=== PATIENT | female | born 1940 | race African-American/Black ===

== ENCOUNTER 2021-02-08 17:23 | Inpatient (IN) | payer MEDICARE, BC ==
[2021-02-08 18:36] LABS: #Monocytes 0.5 10x3/uL (0.0-1.1); #Neutrophils 17.6 10x3/uL (1.5-8.4); %Basophils 0.2 % (0.0-2.0); %Eosinophils 0.1 % (0.0-6.0); %Lymphocytes 7.5 % (18.0-47.0); %Monocytes 2.3 % (0.0-10.0); %Neutrophils 89.1 % (40.0-75.0); Hemoglobin 13.3 g/dL (12.0-15.5); Mean Corpuscular HGB CONC 31.4 g/dL (32.0-36.0); Mean Corpuscular Hemoglobin 28.7 pg (27.0-33.0); Mean Corpuscular Volume 91.6 fl (81.6-98.3); Mean Platelet Volume 9.6 fl (7.4-10.4); Platelet Count 367 10x3/uL (150-450); RBC Distribution Width 17.4 % (11.5-14.5); Red Blood Cell (RBC) Count 4.63 10x6/uL (3.90-5.03); White Blood Cell (WBC) Count 19.7 10x3/uL (3.5-10.5)
[2021-02-08 18:55] LABS: ALT (SGPT) 32 U/L (8-55); AST (SGOT) 33 U/L (5-34); Alkaline Phosphatase 129 U/L (40-110); Anion Gap 23 mmol/L (10-20); BUN (Urea Nitrogen) 51 mg/dL (9.8-20.1); Bilirubin, Total 0.7 mg/dL (0.2-1.2); CK (CPK) 129 U/L (29-168); Calc. Creatinine Clearance 0 mL/min (70-130); Calcium 9.5 mg/dL (7.8-10.44); Carbon Dioxide 13 mmol/L (23-31); Chloride 121 mmol/L (98-107); Globulin 4.1 g/dL (2.4-3.5); Glucose 320 mg/dL (83-110); Magnesium 2.3 mg/dL (1.6-2.6); Potassium 4.6 mmol/L (3.5-5.1); Protein, Total 8.1 g/dL (5.8-8.1); Sodium 152 mmol/L (136-145)
[2021-02-08 19:08] LABS: Bilirubin Neg (Negative); Blood, Urine 150 (Negative); Glucose, Urine (Dipstick) Normal (Negative); Ketone, Urine Negative (Negative); Leukocyte 500 (Negative); Nitrite Negative (Negative); Protein, Urine (Dipstick) 100 mg/dl (Neg-Trace); Urobilinogen Normal mg/dL (Less than 2)
[2021-02-08 19:15] LABS: Clarity Cloudy (Clear)
[2021-02-08 19:23] LABS: Renal Epithelial 0-3 HPF (None Seen); Squamous Epithelial 0-3 HPF (0-3); WBC/HPF 21-50 HPF (0-3)
[2021-02-08 19:24] LABS: Bacteria/HPF 3+ HPF (None Seen); Mucous/LPF 1+ LPF (<2+)
[2021-02-08] MEDS ORDERED: Cefepime 2 GM VIAL ONE (19:33)
[2021-02-09] MEDS ORDERED: Sodium Chloride 0.45% 1,000 ML IV SCH (00:45)
[2021-02-09 00:49] LABS: Lactic Acid 3.2 mmol/L (0.5-2.2)
[2021-02-09] MEDS ORDERED: Vancomycin HCl 1 GM in Sodium Chloride 0.9% 250 ML 250 ML IVPB SCH (01:00)
[2021-02-09] MEDS: Metoprolol Tartrate 5 MG/5 ML VIAL IVP SCH ×2 (01:38→13:32)
[2021-02-09] MEDS ORDERED: HumaLOG 300 UNITS/3 ML VIAL SC SCH (01:45)
[2021-02-09] MEDS ORDERED: Lactated Ringer's 1,000 ML IV SCH (02:15)
[2021-02-09 04:05] LABS: #Neutrophils 14.5 10x3/uL (1.5-8.4); %Basophils 0.2 % (0.0-2.0); %Eosinophils 0.1 % (0.0-6.0); %Lymphocytes 12.6 % (18.0-47.0); %Monocytes 5.8 % (0.0-10.0); %Neutrophils 80.7 % (40.0-75.0); Hemoglobin 11.8 g/dL (12.0-15.5); Mean Corpuscular HGB CONC 31.4 g/dL (32.0-36.0); Mean Corpuscular Hemoglobin 28.6 pg (27.0-33.0); Mean Corpuscular Volume 91.3 fl (81.6-98.3); Mean Platelet Volume 9.9 fl (7.4-10.4); Platelet Count 339 10x3/uL (150-450); Red Blood Cell (RBC) Count 4.12 10x6/uL (3.90-5.03); White Blood Cell (WBC) Count 17.9 10x3/uL (3.5-10.5)
[2021-02-09 04:09] LABS: Lactic Acid 3.3 mmol/L (0.5-2.2)
[2021-02-09 04:13] LABS: Anion Gap 16 mmol/L (10-20); BUN (Urea Nitrogen) 50 mg/dL (9.8-20.1); Calc. Creatinine Clearance 27 mL/min (70-130); Calcium 8.9 mg/dL (7.8-10.44); Carbon Dioxide 18 mmol/L (23-31); Chloride 122 mmol/L (98-107); Glucose 227 mg/dL (83-110); Magnesium 2.1 mg/dL (1.6-2.6); Potassium 3.2 mmol/L (3.5-5.1); Sodium 153 mmol/L (136-145)
[2021-02-09] MEDS ORDERED: Dextrose 5% in Water 1,000 ML IV PRN (05:26)
[2021-02-09] MEDS ORDERED: Dextrose 50% Abboject 50 ML SYRINGE SLOW IVP PRN (05:26)
[2021-02-09] MEDS ORDERED: Pharmacy to Dose VANC & ABX IVPB PRN (08:29)
[2021-02-09] MEDS ORDERED: Vancomycin HCl 750 MG in Sodium Chloride 0.9% 250 ML 250 ML IVPB PRN (08:34)
[2021-02-09] MEDS: 1/2 NS w/KCL 20 mEq 1,000 ML IV SCH ×2 (09:18→18:45)
[2021-02-09] MEDS: Aspirin 300 MG Suppository PR SCH (09:18)
[2021-02-09] MEDS: Enoxaparin Sodium 30 MG/0.3 ML SYRINGE SC SCH (09:18)
[2021-02-09] MEDS: Lantus 1000 UNITS/10 ML VIAL SC SCH (09:19)
[2021-02-09] MEDS: HumaLOG 300 UNITS/3 ML VIAL SC PRN ×2 (17:33→21:15)
[2021-02-09] MEDS: Cefepime 2 GM in Sodium Chloride 0.9% 100 ML IVPB SCH (19:59)
[2021-02-09 21:11] LABS: SARS-CoV-2 PCR by NAA Not Detected (NotDetected)
[2021-02-10 01:40] LABS: Vancomycin, Random 6.6 ug/mL (See Comment)
[2021-02-10] MEDS: Metoprolol Tartrate 5 MG/5 ML VIAL IVP SCH ×2 (01:41→12:32)
[2021-02-10] MEDS ORDERED: Pharmacy to Dose VANC & ABX IVPB PRN (01:59)
[2021-02-10] MEDS ORDERED: Vancomycin HCl 750 MG in Sodium Chloride 0.9% 250 ML 250 ML IVPB SCH (02:00)
[2021-02-10 04:49] LABS: #Eosinphils 0.1 10x3/uL (0.0-0.5); #Monocytes 0.9 10x3/uL (0.0-1.1); #Neutrophils 9.7 10x3/uL (1.5-8.4); %Basophils 0.2 % (0.0-2.0); %Eosinophils 0.4 % (0.0-6.0); %Lymphocytes 19.3 % (18.0-47.0); %Monocytes 6.7 % (0.0-10.0); %Neutrophils 72.7 % (40.0-75.0); Hemoglobin 9.2 g/dL (12.0-15.5); Mean Corpuscular HGB CONC 31.8 g/dL (32.0-36.0); Mean Corpuscular Volume 91.2 fl (81.6-98.3); Platelet Count 266 10x3/uL (150-450); RBC Distribution Width 16.8 % (11.5-14.5); Red Blood Cell (RBC) Count 3.17 10x6/uL (3.90-5.03); White Blood Cell (WBC) Count 13.4 10x3/uL (3.5-10.5)
[2021-02-10] MEDS ORDERED: Amlodipine 10 MG TAB PO SCH (05:00)
[2021-02-10] MEDS: 1/2 NS w/KCL 20 mEq 1,000 ML IV SCH ×2 (05:03→12:47)
[2021-02-10 05:13] LABS: Anion Gap 10 mmol/L (10-20); BUN (Urea Nitrogen) 26 mg/dL (9.8-20.1); Calc. Creatinine Clearance 40 mL/min (70-130); Calcium 8.1 mg/dL (7.8-10.44); Carbon Dioxide 21 mmol/L (23-31); Chloride 122 mmol/L (98-107); Glucose 150 mg/dL (83-110); Potassium 3.7 mmol/L (3.5-5.1); Sodium 149 mmol/L (136-145)
[2021-02-10] MEDS ORDERED: FLU VACC QS2021-22(65YR UP)/PF 240 MCG/0.7 ML SYRINGE IM ONE (09:00)
[2021-02-10] MEDS: Losartan Potassium 50 MG TAB PO SCH (09:46)
[2021-02-10] MEDS: Lantus 1000 UNITS/10 ML VIAL SC SCH (09:50)
[2021-02-10] MEDS: Enoxaparin Sodium 30 MG/0.3 ML SYRINGE SC SCH (09:51)
[2021-02-10] MEDS: Dextrose 5 %-0.45 % NaCl 1,000 ML IV SCH (09:55)
[2021-02-10] MEDS: HumaLOG 300 UNITS/3 ML VIAL SC PRN ×2 (12:32→16:53)
[2021-02-10] MEDS: Aspirin 300 MG Suppository PR SCH (12:48)
[2021-02-10] MEDS ORDERED: hydrALAZINE 20 MG/ML VIAL SLOW IVP SCH (20:00)
[2021-02-10] MEDS: Cefepime 2 GM in Sodium Chloride 0.9% 100 ML IVPB SCH (20:15)
[2021-02-10] MEDS: Atorvastatin Calcium 40 MG TAB PO SCH (20:15)
[2021-02-10] MEDS: Vancomycin HCl 750 MG in Sodium Chloride 0.9% 250 ML 250 ML IVPB SCH (21:25)
[2021-02-11] MEDS: Dextrose 5 %-0.45 % NaCl 1,000 ML IV SCH ×2 (00:51→18:09)
[2021-02-11] MEDS: Metoprolol Tartrate 5 MG/5 ML VIAL IVP SCH ×2 (00:51→13:41)
[2021-02-11] MEDS ORDERED: Vancomycin HCl 750 MG in Sodium Chloride 0.9% 250 ML 250 ML IVPB SCH (01:00)
[2021-02-11 05:45] LABS: Anion Gap 12 mmol/L (10-20); BUN (Urea Nitrogen) 15 mg/dL (9.8-20.1); Calc. Creatinine Clearance 48 mL/min (70-130); Calcium 8.1 mg/dL (7.8-10.44); Carbon Dioxide 19 mmol/L (23-31); Chloride 114 mmol/L (98-107); Potassium 3.2 mmol/L (3.5-5.1); Sodium 142 mmol/L (136-145)
[2021-02-11 05:50] LABS: Glucose 191 mg/dL (83-110)
[2021-02-11 06:26] LABS: #Eosinphils 0.1 10x3/uL (0.0-0.5); #Monocytes 0.9 10x3/uL (0.0-1.1); %Basophils 0.2 % (0.0-2.0); %Eosinophils 0.6 % (0.0-6.0); %Lymphocytes 20.3 % (18.0-47.0); %Monocytes 6.7 % (0.0-10.0); %Neutrophils 71.6 % (40.0-75.0); Hemoglobin 11.4 g/dL (12.0-15.5); Mean Corpuscular HGB CONC 33.3 g/dL (32.0-36.0); Platelet Count 279 10x3/uL (150-450); RBC Distribution Width 16.3 % (11.5-14.5); Red Blood Cell (RBC) Count 3.93 10x6/uL (3.90-5.03); White Blood Cell (WBC) Count 12.6 10x3/uL (3.5-10.5)
[2021-02-11] MEDS: Amlodipine 10 MG TAB PO SCH (08:55)
[2021-02-11] MEDS: Losartan Potassium 50 MG TAB PO SCH (08:55)
[2021-02-11] MEDS: Cefepime 2 GM in Sodium Chloride 0.9% 100 ML IVPB SCH (08:56)
[2021-02-11] MEDS: Lantus 1000 UNITS/10 ML VIAL SC SCH (08:57)
[2021-02-11] MEDS: HumaLOG 300 UNITS/3 ML VIAL SC PRN ×2 (09:00→13:23)
[2021-02-11] MEDS ORDERED: Aspirin 325 mg Enteric Coated Tablet PO SCH (09:00)
[2021-02-11] MEDS: Enoxaparin Sodium 30 MG/0.3 ML SYRINGE SC SCH (09:04)
[2021-02-11] MEDS ORDERED: Aspirin 325 MG TAB PO SCH (09:30)
[2021-02-11] MEDS ORDERED: Losartan Potassium 50 MG TAB PO SCH (11:45)
[2021-02-11] MEDS: Potassium Chloride 20 MEQ in Premix Bag 1 BAG IVPB SCH ×2 (13:40→15:39)
[2021-02-11] MEDS: Vancomycin HCl 750 MG in Sodium Chloride 0.9% 250 ML 250 ML IVPB SCH (16:26)
[2021-02-12] MEDS: Atorvastatin Calcium 40 MG TAB PO SCH ×2 (00:46→20:58)
[2021-02-12] MEDS: Cefepime 2 GM in Sodium Chloride 0.9% 100 ML IVPB SCH ×3 (00:46→19:50)
[2021-02-12] MEDS: Metoprolol Tartrate 5 MG/5 ML VIAL IVP SCH ×2 (00:46→14:44)
[2021-02-12 05:32] LABS: #Eosinphils 0.1 10x3/uL (0.0-0.5); #Monocytes 0.6 10x3/uL (0.0-1.1); #Neutrophils 7.5 10x3/uL (1.5-8.4); %Basophils 0.2 % (0.0-2.0); %Lymphocytes 19.5 % (18.0-47.0); %Neutrophils 72.8 % (40.0-75.0); Hemoglobin 10.4 g/dL (12.0-15.5); Mean Corpuscular HGB CONC 33.5 g/dL (32.0-36.0); Mean Corpuscular Hemoglobin 29.6 pg (27.0-33.0); Mean Corpuscular Volume 88.3 fl (81.6-98.3); Platelet Count 248 10x3/uL (150-450); RBC Distribution Width 16.3 % (11.5-14.5); Red Blood Cell (RBC) Count 3.51 10x6/uL (3.90-5.03); White Blood Cell (WBC) Count 10.3 10x3/uL (3.5-10.5)
[2021-02-12 05:49] LABS: Anion Gap 11 mmol/L (10-20); BUN (Urea Nitrogen) 11 mg/dL (9.8-20.1); Calc. Creatinine Clearance 53 mL/min (70-130); Calcium 8.2 mg/dL (7.8-10.44); Carbon Dioxide 21 mmol/L (23-31); Chloride 112 mmol/L (98-107); Glucose 150 mg/dL (83-110); Magnesium 1.6 mg/dL (1.6-2.6); Potassium 3.8 mmol/L (3.5-5.1); Sodium 140 mmol/L (136-145)
[2021-02-12] MEDS: Dextrose 5 %-0.45 % NaCl 1,000 ML IV SCH ×2 (09:27→22:43)
[2021-02-12] MEDS: Amlodipine 10 MG TAB PO SCH (09:28)
[2021-02-12] MEDS: Aspirin 325 MG TAB PO SCH (09:28)
[2021-02-12] MEDS: Losartan Potassium 50 MG TAB PO SCH (09:28)
[2021-02-12] MEDS: Enoxaparin Sodium 30 MG/0.3 ML SYRINGE SC SCH (09:29)
[2021-02-12] MEDS: Lantus 1000 UNITS/10 ML VIAL SC SCH (09:31)
[2021-02-12] MEDS: HumaLOG 300 UNITS/3 ML VIAL SC PRN ×4 (09:39→22:32)
[2021-02-12] MEDS: Vancomycin HCl 1 GM in Sodium Chloride 0.9% 250 ML 250 ML IVPB SCH (10:00)
[2021-02-12] MEDS ORDERED: Electrolyte Replacement Protocol 1 EACH FS SCH (12:30)
[2021-02-12] MEDS ORDERED: Mirtazapine 15 MG Soltab PO SCH (12:30)
[2021-02-12] MEDS ORDERED: Magnesium 2 GM/50 ML 2 GM in Premix Bag 1 BAG IVPB SCH (12:45)
[2021-02-12] MEDS: Dronabinol 2.5 MG CAP PO SCH (17:34)
[2021-02-12] MEDS: Docusate 100 MG CAP PO SCH (20:58)
[2021-02-12] MEDS: Mirtazapine 15 MG Soltab PO SCH (20:58)
[2021-02-13] MEDS: Metoprolol Tartrate 5 MG/5 ML VIAL IVP SCH ×2 (01:57→14:14)
[2021-02-13] MEDS: Vancomycin HCl 1 GM in Sodium Chloride 0.9% 250 ML 250 ML IVPB SCH ×2 (04:58→21:24)
[2021-02-13 05:30] LABS: Anion Gap 12 mmol/L (10-20); BUN (Urea Nitrogen) 13 mg/dL (9.8-20.1); Calc. Creatinine Clearance 50 mL/min (70-130); Carbon Dioxide 18 mmol/L (23-31); Chloride 112 mmol/L (98-107); Glucose 108 mg/dL (83-110); Sodium 137 mmol/L (136-145)
[2021-02-13] MEDS ORDERED: Magnesium 2 GM/50 ML 2 GM in Premix Bag 1 BAG IVPB SCH (05:45)
[2021-02-13 06:36] LABS: #Eosinphils 0.1 10x3/uL (0.0-0.5); #Monocytes 1.1 10x3/uL (0.0-1.1); #Neutrophils 9.3 10x3/uL (1.5-8.4); %Basophils 0.2 % (0.0-2.0); %Eosinophils 0.9 % (0.0-6.0); %Lymphocytes 21.7 % (18.0-47.0); %Monocytes 8.2 % (0.0-10.0); %Neutrophils 67.8 % (40.0-75.0); Hemoglobin 11.4 g/dL (12.0-15.5); Mean Corpuscular HGB CONC 33.3 g/dL (32.0-36.0); Mean Corpuscular Hemoglobin 28.4 pg (27.0-33.0); Mean Corpuscular Volume 85.3 fl (81.6-98.3); Mean Platelet Volume 10.8 fl (7.4-10.4); Platelet Count 194 10x3/uL (150-450); RBC Distribution Width 16.2 % (11.5-14.5); Red Blood Cell (RBC) Count 4.01 10x6/uL (3.90-5.03); White Blood Cell (WBC) Count 13.8 10x3/uL (3.5-10.5)
[2021-02-13] MEDS: Enoxaparin Sodium 30 MG/0.3 ML SYRINGE SC SCH (08:38)
[2021-02-13] MEDS: Amlodipine 10 MG TAB PO SCH ×2 (08:38→15:05)
[2021-02-13] MEDS: Dronabinol 2.5 MG CAP PO SCH ×2 (08:38→18:49)
[2021-02-13] MEDS: Aspirin 325 MG TAB PO SCH ×2 (08:38→15:05)
[2021-02-13] MEDS: Docusate 100 MG CAP PO SCH ×3 (08:39→21:34)
[2021-02-13] MEDS: Losartan Potassium 50 MG TAB PO SCH ×2 (08:39→15:05)
[2021-02-13] MEDS: Cefepime 2 GM in Sodium Chloride 0.9% 100 ML IVPB SCH ×2 (08:39→21:23)
[2021-02-13] MEDS: Lantus 1000 UNITS/10 ML VIAL SC SCH (08:42)
[2021-02-13] MEDS: Dextrose 5 %-0.45 % NaCl 1,000 ML IV SCH (14:12)
[2021-02-13 15:01] VITALS: BMI 23.8
[2021-02-13] MEDS ORDERED: Labetalol HCl 100 MG/20 ML VIAL SLOW IVP PRN (16:02)
[2021-02-13] MEDS: hydrALAZINE 20 MG/ML VIAL SLOW IVP PRN ×2 (17:11→23:10)
[2021-02-13] MEDS: Atorvastatin Calcium 40 MG TAB PO SCH (21:34)
[2021-02-13] MEDS: Mirtazapine 15 MG Soltab PO SCH (21:34)
[2021-02-14] MEDS: Metoprolol Tartrate 5 MG/5 ML VIAL IVP SCH ×2 (01:42→15:38)
[2021-02-14] MEDS: Dextrose 5 %-0.45 % NaCl 1,000 ML IV SCH ×2 (03:10→15:38)
[2021-02-14] MEDS: hydrALAZINE 20 MG/ML VIAL SLOW IVP PRN (05:06)
[2021-02-14 05:37] LABS: ALT (SGPT) 20 U/L (8-55); AST (SGOT) 26 U/L (5-34); Albumin 2.8 g/dL (3.4-4.8); Alkaline Phosphatase 110 U/L (40-110); Anion Gap 12 mmol/L (10-20); BUN (Urea Nitrogen) 11 mg/dL (9.8-20.1); Bilirubin, Total 0.6 mg/dL (0.2-1.2); Calc. Creatinine Clearance 50 mL/min (70-130); Calcium 7.7 mg/dL (7.8-10.44); Carbon Dioxide 17 mmol/L (23-31); Chloride 109 mmol/L (98-107); Globulin 2.6 g/dL (2.4-3.5); Glucose 285 mg/dL (83-110); Potassium 4.6 mmol/L (3.5-5.1); Protein, Total 5.4 g/dL (5.8-8.1); Sodium 133 mmol/L (136-145)
[2021-02-14 06:05] LABS: #Monocytes 0.9 10x3/uL (0.0-1.1); #Neutrophils 12.4 10x3/uL (1.5-8.4); %Basophils 0.3 % (0.0-2.0); %Eosinophils 0.3 % (0.0-6.0); %Monocytes 6.2 % (0.0-10.0); %Neutrophils 82.3 % (40.0-75.0); Mean Corpuscular HGB CONC 33.6 g/dL (32.0-36.0); Mean Corpuscular Hemoglobin 29.3 pg (27.0-33.0); Mean Platelet Volume 10.6 fl (7.4-10.4); Platelet Count 260 10x3/uL (150-450); RBC Distribution Width 16.2 % (11.5-14.5); Red Blood Cell (RBC) Count 3.76 10x6/uL (3.90-5.03)
[2021-02-14] MEDS: HumaLOG 300 UNITS/3 ML VIAL SC PRN (06:28)
[2021-02-14] MEDS: Cefepime 2 GM in Sodium Chloride 0.9% 100 ML IVPB SCH (07:41)
[2021-02-14] MEDS ORDERED: Fentanyl 100 MCG/2 ML VIAL ONE (10:00)
[2021-02-14] MEDS ORDERED: PROPOFOL 20 ML ONE (10:00)
[2021-02-14] MEDS ORDERED: Lidocaine 1% PF 5 ML VIAL ONE (10:02)
[2021-02-14] MEDS ORDERED: Glycopyrrolate 0.2 MG/ML 5 ML SYRINGE ONE (10:02)
[2021-02-14] MEDS ORDERED: PHENYLEPHRINE-NS 100 MCG/ML 10 ML SYRINGE ONE (10:13)
[2021-02-14] MEDS: Amlodipine 10 MG TAB PO SCH (13:14)
[2021-02-14] MEDS: Aspirin 325 MG TAB PO SCH (13:14)
[2021-02-14] MEDS: Losartan Potassium 50 MG TAB PO SCH (13:15)
[2021-02-14] MEDS: Enoxaparin Sodium 30 MG/0.3 ML SYRINGE SC SCH (13:15)
[2021-02-14] MEDS: Lantus 1000 UNITS/10 ML VIAL SC SCH (13:15)
[2021-02-14] MEDS: Docusate 100 MG CAP PO SCH ×2 (13:15→20:27)
[2021-02-14 15:04] LABS: Vancomycin, Trough 21.7 ug/mL
[2021-02-14] MEDS: Atorvastatin Calcium 40 MG TAB PO SCH (20:27)
[2021-02-15] MEDS: Metoprolol Tartrate 5 MG/5 ML VIAL IVP SCH ×2 (01:08→12:49)
[2021-02-15] MEDS: HumaLOG 300 UNITS/3 ML VIAL SC PRN ×4 (01:08→16:00)
[2021-02-15] MEDS: Dextrose 5 %-0.45 % NaCl 1,000 ML IV SCH (03:19)
[2021-02-15] MEDS ORDERED: Dextrose 5 %-0.45 % NaCl 1,000 ML IV SCH (05:45)
[2021-02-15] MEDS: hydrALAZINE 20 MG/ML VIAL SLOW IVP PRN (06:34)
[2021-02-15] MEDS ORDERED: Artificial Tear Sol 15 ML BOT EA EYE PRN (06:55)
[2021-02-15] MEDS ORDERED: GUAIFENESIN SF SOLN 200 MG/10 ML UDCUP PO PRN (06:55)
[2021-02-15] MEDS ORDERED: Senokot S 8.6-50 MG TAB PO PRN (06:55)
[2021-02-15] MEDS ORDERED: Sodium Chloride 0.65% Nasal 44 ML BOT EA NARE PRN (06:55)
[2021-02-15] MEDS ORDERED: Ondansetron PF 4 MG/2 ML Vial IVP PRN (06:55)
[2021-02-15] MEDS ORDERED: Loperamide HCl 2 MG CAP PO PRN (06:55)
[2021-02-15] MEDS ORDERED: Bisacodyl 5 MG TAB PO PRN (06:55)
[2021-02-15] MEDS ORDERED: Loratadine 10 MG TAB PO PRN (06:55)
[2021-02-15] MEDS ORDERED: Hydrocerin (Eucerin) Cream 120 gm Jar TOP PRN (06:55)
[2021-02-15] MEDS ORDERED: Calcium Carbonate 500 MG ChewTAB PO PRN (06:55)
[2021-02-15] MEDS ORDERED: Metoclopramide HCl 10 MG/2 ML VIAL IVP PRN (06:55)
[2021-02-15] MEDS ORDERED: Cepastat Lozenges 1 LOZ PO PRN (06:55)
[2021-02-15] MEDS ORDERED: Communication Order-Pharmacy FS PRN (08:44)
[2021-02-15] MEDS ORDERED: GUAIFENESIN SF SOLN 200 MG/10 ML UDCUP PER TUBE PRN (08:45)
[2021-02-15] MEDS ORDERED: Calcium Carbonate 500 MG ChewTAB PER TUBE PRN (08:45)
[2021-02-15] MEDS ORDERED: Loperamide HCl 2 MG CAP PER TUBE PRN (08:45)
[2021-02-15] MEDS ORDERED: Senokot S 8.6-50 MG TAB PER TUBE PRN (08:45)
[2021-02-15 08:54] LABS: Anion Gap 13 mmol/L (10-20); BUN (Urea Nitrogen) 11 mg/dL (9.8-20.1); Calc. Creatinine Clearance 42 mL/min (70-130); Calcium 8.6 mg/dL (7.8-10.44); Carbon Dioxide 19 mmol/L (23-31); Chloride 109 mmol/L (98-107); Glucose 182 mg/dL (83-110); Sodium 136 mmol/L (136-145)
[2021-02-15] MEDS ORDERED: Docusate 100 MG CAP PER TUBE SCH (09:00)
[2021-02-15] MEDS ORDERED: Amlodipine 10 MG TAB PER TUBE SCH (09:00)
[2021-02-15] MEDS ORDERED: Aspirin 325 MG TAB PER TUBE SCH (09:00)
[2021-02-15] MEDS ORDERED: Enoxaparin Sodium 40 MG/0.4 ML SYRINGE SC SCH (09:00)
[2021-02-15] MEDS ORDERED: Losartan Potassium 50 MG TAB PER TUBE SCH (09:00)
[2021-02-15] MEDS ORDERED: Enoxaparin Sodium 30 MG/0.3 ML SYRINGE SC SCH (09:00)
[2021-02-15 09:05] LABS: Potassium 4.5 mmol/L (3.5-5.1)
[2021-02-15] MEDS: hydrALAZINE 25 MG TAB PER TUBE SCH ×3 (10:13→18:34)
[2021-02-15] MEDS: Lantus 1000 UNITS/10 ML VIAL SC SCH (10:15)
[2021-02-15 14:41] LABS: Bilirubin Neg (Negative); Blood, Urine 50 (Negative); Clarity Cloudy (Clear); Glucose, Urine (Dipstick) 250 mg/dL (Negative); Ketone, Urine 5 mg/dL (Negative); Leukocyte 500 (Negative); Nitrite Negative (Negative); Protein, Urine (Dipstick) 100 mg/dl (Neg-Trace); Urobilinogen Normal mg/dL (Less than 2)
[2021-02-15 15:25] LABS: Squamous Epithelial 0-3 HPF (0-3); WBC/HPF 21-50 HPF (0-3)
[2021-02-15 15:26] LABS: Bacteria/HPF 3+ HPF (None Seen)
[2021-02-15 15:27] LABS: Yeast-Budding 2+ HPF (None Seen)
[2021-02-15 15:53] VITALS: BP 131/61; TEMP 98.1
[2021-02-15] MEDS ORDERED: Atorvastatin Calcium 40 MG TAB PER TUBE SCH (21:00)
== END 2021-02-15 20:00 | DRG 64 ==
LOC: CSHERS 17:23 → CSHTELE 17:24
PROVIDERS: ADMIT Family Medicine; ATTEND Internal Medicine
PROC: 0DH63UZ Insertion of Feeding Device into Stomach, Percutaneous Approach (ICD-10-PCS; principal; 2021-02-14)
PROC: 3E0G76Z Introduction of Nutritional Substance into Upper GI, Via Natural or Artificial Opening (ICD-10-PCS; 2021-02-14)
DX: I63.89 Other cerebral infarction (principal); A41.9 Sepsis, unspecified organism; T83.511A Infection and inflammatory reaction due to indwelling urethral catheter, initial encounter; N39.0 Urinary tract infection, site not specified; G93.40 Encephalopathy, unspecified; G81.94 Hemiplegia, unspecified affecting left nondominant side; E87.2 Acidosis; N17.9 Acute kidney failure, unspecified; E87.0 Hyperosmolality and hypernatremia; E46 Unspecified protein-calorie malnutrition; R47.01 Aphasia; E86.0 Dehydration; Z20.822 Contact with and (suspected) exposure to COVID-19; R13.12 Dysphagia, oropharyngeal phase; R29.717 NIHSS score 17; Z66 Do not resuscitate; F03.90 Unspecified dementia, unspecified severity, without behavioral disturbance, psychotic disturbance, mood disturbance, and anxiety; R29.810 Facial weakness; R47.1 Dysarthria and anarthria; L89.151 Pressure ulcer of sacral region, stage 1; I11.0 Hypertensive heart disease with heart failure; I50.9 Heart failure, unspecified; R63.0 Anorexia; Y84.6 Urinary catheterization as the cause of abnormal reaction of the patient, or of later complication, without mention of misadventure at the time of the procedure; E11.65 Type 2 diabetes mellitus with hyperglycemia; Z51.5 Encounter for palliative care; Z79.4 Long term (current) use of insulin; Z88.5 Allergy status to narcotic agent; Z91.010 Allergy to peanuts; Z86.73 Personal history of transient ischemic attack (TIA), and cerebral infarction without residual deficits; Z79.82 Long term (current) use of aspirin; Z79.899 Other long term (current) drug therapy; Z79.84 Long term (current) use of oral hypoglycemic drugs; Z90.710 Acquired absence of both cervix and uterus; Z85.3 Personal history of malignant neoplasm of breast; Z92.21 Personal history of antineoplastic chemotherapy; Z68.23 Body mass index [BMI] 23.0-23.9, adult
CPT/HCPCS: 36415; 36416; 51702; 70450; 71045; 80048; 80053; 80202; 81003; 81015; 82010; 82140; 82550; 83605; 83735; 84443; 84484; 85025; 87040; 87086; 87149; 93005; 93306; 93880; 96365; J0360; J0692; J1650; J1815; J2704; J3010; J3370; J3475; J3480; J3490; J7042; J7050; J7120; Q0167; U0003; U0005

== ENCOUNTER 2021-02-23 13:15 | Inpatient (IN) | payer MEDICARE, BC ==
[2021-02-23 14:17] LABS: Bilirubin Neg (Negative); Blood, Urine Negative (Negative); Clarity Cloudy (Clear); Glucose, Urine (Dipstick) 100 mg/dL (Negative); Ketone, Urine Negative (Negative); Leukocyte 500 (Negative); Nitrite Negative (Negative); Protein, Urine (Dipstick) 30 mg/dl (Neg-Trace); Urobilinogen Normal mg/dL (Less than 2)
[2021-02-23 14:19] LABS: #Monocytes 0.7 10x3/uL (0.0-1.1); #Neutrophils 15.8 10x3/uL (1.5-8.4); %Basophils 0.1 % (0.0-2.0); %Eosinophils 0.1 % (0.0-6.0); %Lymphocytes 4.1 % (18.0-47.0); %Monocytes 3.8 % (0.0-10.0); %Neutrophils 91.5 % (40.0-75.0); Hemoglobin 9.3 g/dL (12.0-15.5); Mean Corpuscular HGB CONC 33.2 g/dL (32.0-36.0); Mean Corpuscular Hemoglobin 29.2 pg (27.0-33.0); Mean Corpuscular Volume 87.8 fl (81.6-98.3); Platelet Count 461 10x3/uL (150-450); RBC Distribution Width 16.9 % (11.5-14.5); Red Blood Cell (RBC) Count 3.19 10x6/uL (3.90-5.03); White Blood Cell (WBC) Count 17.3 10x3/uL (3.5-10.5)
[2021-02-23 14:33] LABS: ALT (SGPT) 19 U/L (8-55); AST (SGOT) 23 U/L (5-34); Albumin 2.7 g/dL (3.4-4.8); Alkaline Phosphatase 116 U/L (40-110); Anion Gap 11 mmol/L (10-20); BUN (Urea Nitrogen) 48 mg/dL (9.8-20.1); Bilirubin, Total 0.3 mg/dL (0.2-1.2); Calc. Creatinine Clearance 0 mL/min (70-130); Calcium 7.8 mg/dL (7.8-10.44); Carbon Dioxide 22 mmol/L (23-31); Chloride 101 mmol/L (98-107); Globulin 2.7 g/dL (2.4-3.5); Glucose 315 mg/dL (83-110); Protein, Total 5.4 g/dL (5.8-8.1); Sodium 131 mmol/L (136-145)
[2021-02-23 14:35] LABS: Bacteria/HPF 1+ HPF (None Seen); WBC/HPF Greater than 50 HPF (0-3); Yeast-Budding 1+ HPF (None Seen)
[2021-02-23] MEDS ORDERED: Cefepime 2 GM VIAL ONE (14:37)
[2021-02-23 14:50] LABS: Potassium 2.8 mmol/L (3.5-5.1)
[2021-02-23 15:10] LABS: SARS-CoV-2 NAA Rapid Test Not Detected (NotDetected)
[2021-02-23] MEDS ORDERED: Communication Order-Pharmacy FS PRN (16:33)
[2021-02-23] MEDS ORDERED: Ondansetron ODT 4 MG TAB PO PRN (16:35)
[2021-02-23] MEDS ORDERED: Ondansetron PF 4 MG/2 ML Vial IVP PRN (16:35)
[2021-02-23] MEDS ORDERED: Acetaminophen 650 MG Suppository PR PRN (16:35)
[2021-02-23] MEDS ORDERED: Acetaminophen 325 MG TAB PO PRN (16:35)
[2021-02-23] MEDS ORDERED: Piperacillin/Tazobactam 3.375 GM in Sodium Chloride 0.9% 100 ML IVPB SCH (16:45)
[2021-02-23 17:29] LABS: Actual Bicarbonate (HCO3a) 22.3 mEq/L (22-28); Base Excess (BEa) -2.8 mEq/L (-2.0 to +3.0); Calcium, Ionized (arterial) 1.18 mmol/L (1.12-1.30); Carboxyhemoglobin (COHb) 0.4 gm% (0.0-3.0); O2 Tension (PaO2), arterial 32.1 mmHg (> 60.0); Potassium - ABG Lab 2.6 mmol/L (3.70-5.30); Puncture Site RRA; pH, Arterial 7.36 (7.35-7.45)
[2021-02-23] MEDS ORDERED: Electrolyte Replacement Protocol 1 EACH FS SCH (17:30)
[2021-02-23 17:43] VITALS: BMI 26.6
[2021-02-23] MEDS ORDERED: Potassium Chloride 20 MEQ in Premix Bag 1 BAG IVPB SCH (17:45)
[2021-02-23] MEDS ORDERED: Potassium Bicarbonate/Cit Ac 20 MEQ TAB PER TUBE SCH (17:45)
[2021-02-23] MEDS ORDERED: Dextrose 50% Abboject 50 ML SYRINGE SLOW IVP PRN (17:52)
[2021-02-23] MEDS ORDERED: Dextrose 5% in Water 1,000 ML IV PRN (17:52)
[2021-02-23 18:11] LABS: Anion Gap 12 mmol/L (10-20); BUN (Urea Nitrogen) 52 mg/dL (9.8-20.1); Calc. Creatinine Clearance 47 mL/min (70-130); Calcium 7.7 mg/dL (7.8-10.44); Carbon Dioxide 21 mmol/L (23-31); Chloride 102 mmol/L (98-107); Glucose 255 mg/dL (83-110); Magnesium 2.3 mg/dL (1.6-2.6); Phosphorus 3.4 mg/dL (2.3-4.7); Sodium 132 mmol/L (136-145)
[2021-02-23] MEDS: Vancomycin 25 MG/ML Oral SOLN PO SCH ×2 (19:48→23:42)
[2021-02-23] MEDS: Lactated Ringer's 1,000 ML IV SCH (19:48)
[2021-02-23 20:27] LABS: Legionella Urinary Ag Negative (Negative); Strep pneumo Urine Ag NEGATIVE (NEGATIVE)
[2021-02-23] MEDS: Potassium Chloride 20 MEQ in Premix Bag 1 BAG IVPB SCH ×2 (20:54→22:57)
[2021-02-23] MEDS ORDERED: Lantus 1000 UNITS/10 ML VIAL SC SCH (21:00)
[2021-02-23] MEDS: Piperacillin/Tazobactam 3.375 GM in Sodium Chloride 0.9% 100 ML IVPB SCH (22:18)
[2021-02-23] MEDS: HumaLOG 300 UNITS/3 ML VIAL SC PRN (22:48)
[2021-02-24 00:03] LABS: Anion Gap 13 mmol/L (10-20); BUN (Urea Nitrogen) 51 mg/dL (9.8-20.1); Calc. Creatinine Clearance 46 mL/min (70-130); Calcium 8.4 mg/dL (7.8-10.44); Carbon Dioxide 23 mmol/L (23-31); Chloride 100 mmol/L (98-107); Glucose 240 mg/dL (83-110); Potassium 3.5 mmol/L (3.5-5.1); Sodium 132 mmol/L (136-145)
[2021-02-24 04:29] LABS: Hemoglobin 8.5 g/dL (12.0-15.5); Mean Corpuscular HGB CONC 33.6 g/dL (32.0-36.0); Mean Corpuscular Hemoglobin 28.7 pg (27.0-33.0); Mean Corpuscular Volume 85.5 fl (81.6-98.3); Platelet Count 385 10x3/uL (150-450); Red Blood Cell (RBC) Count 2.96 10x6/uL (3.90-5.03); White Blood Cell (WBC) Count 22.8 10x3/uL (3.5-10.5)
[2021-02-24 04:33] LABS: ALT (SGPT) 17 U/L (8-55); AST (SGOT) 20 U/L (5-34); Albumin 2.6 g/dL (3.4-4.8); Alkaline Phosphatase 93 U/L (40-110); Anion Gap 10 mmol/L (10-20); BUN (Urea Nitrogen) 50 mg/dL (9.8-20.1); Bilirubin, Total 0.4 mg/dL (0.2-1.2); Calc. Creatinine Clearance 47 mL/min (70-130); Calcium 8.2 mg/dL (7.8-10.44); Carbon Dioxide 22 mmol/L (23-31); Chloride 103 mmol/L (98-107); Globulin 2.9 g/dL (2.4-3.5); Glucose 162 mg/dL (83-110); Potassium 3.3 mmol/L (3.5-5.1); Protein, Total 5.5 g/dL (5.8-8.1); Sodium 132 mmol/L (136-145)
[2021-02-24] MEDS: Piperacillin/Tazobactam 3.375 GM in Sodium Chloride 0.9% 100 ML IVPB SCH ×2 (05:11→13:22)
[2021-02-24 05:13] LABS: MDiff Complete? YES
[2021-02-24 05:15] LABS: Band 11 % (5-11); Lymphocytes 8 % (21-51); Monocytes 8 % (0-10); Neutrophil 73 % (42-75)
[2021-02-24 05:18] LABS: Anisocytosis SLIGHT = 6-15 cells (100X) (0-5/hpf); Hypochromia SLIGHT = 6-15 cells (100X) (0-5/hpf); Platelet Morphology Comment Appears Adequate
[2021-02-24] MEDS ORDERED: Potassium Bicarbonate/Cit Ac 20 MEQ TAB PER TUBE SCH (08:00)
[2021-02-24] MEDS: Enoxaparin Sodium 40 MG/0.4 ML SYRINGE SC SCH (10:37)
[2021-02-24] MEDS: Lactated Ringer's 1,000 ML IV SCH (11:32)
[2021-02-24] MEDS: Vancomycin 25 MG/ML Oral SOLN PO SCH (11:33)
[2021-02-24 12:33] LABS: Hemoglobin A1c 8.1 % (4.0-6.0)
[2021-02-24 15:04] LABS: Potassium 2.8 mmol/L (3.5-5.1)
[2021-02-24] MEDS ORDERED: Magnesium 2 GM/50 ML 2 GM in Premix Bag 1 BAG IVPB SCH (16:00)
[2021-02-24] MEDS: Vancomycin HCl 1 GM in Sodium Chloride 0.9% 250 ML 250 ML IVPB SCH (16:20)
[2021-02-24 16:38] LABS: Magnesium 2.4 mg/dL (1.6-2.6); Phosphorus 3.3 mg/dL (2.3-4.7)
[2021-02-24] MEDS ORDERED: Potassium Chloride 20 MEQ TAB PO SCH (18:00)
[2021-02-24] MEDS ORDERED: Potassium Chloride 40 MEQ in Premix Bag 1 BAG IVPB SCH (18:15)
[2021-02-24] MEDS ORDERED: Potassium Bicarbonate/Cit Ac 20 MEQ TAB PO SCH (19:00)
[2021-02-24] MEDS ORDERED: Potassium Chloride 20 MEQ in Premix Bag 1 BAG IVPB SCH (20:00)
[2021-02-24] MEDS ORDERED: Lantus 1000 UNITS/10 ML VIAL SC SCH (21:00)
[2021-02-25] MEDS: Piperacillin/Tazobactam 3.375 GM in Sodium Chloride 0.9% 100 ML IVPB SCH ×4 (01:45→18:44)
[2021-02-25] MEDS: Lactated Ringer's 1,000 ML IV SCH ×5 (01:46→23:25)
[2021-02-25 02:33] LABS: ALT (SGPT) 19 U/L (8-55); AST (SGOT) 22 U/L (5-34); Albumin 2.6 g/dL (3.4-4.8); Alkaline Phosphatase 95 U/L (40-110); Anion Gap 12 mmol/L (10-20); BUN (Urea Nitrogen) 41 mg/dL (9.8-20.1); Bilirubin, Total 0.4 mg/dL (0.2-1.2); Calc. Creatinine Clearance 46 mL/min (70-130); Calcium 8.5 mg/dL (7.8-10.44); Carbon Dioxide 24 mmol/L (23-31); Chloride 105 mmol/L (98-107); Globulin 3.4 g/dL (2.4-3.5); Glucose 144 mg/dL (83-110); Sodium 137 mmol/L (136-145)
[2021-02-25 02:42] LABS: Mean Corpuscular HGB CONC 33.3 g/dL (32.0-36.0); Mean Corpuscular Hemoglobin 28.8 pg (27.0-33.0); Mean Corpuscular Volume 86.5 fl (81.6-98.3); Platelet Count 452 10x3/uL (150-450); RBC Distribution Width 17.5 % (11.5-14.5); Red Blood Cell (RBC) Count 3.12 10x6/uL (3.90-5.03); White Blood Cell (WBC) Count 24.6 10x3/uL (3.5-10.5)
[2021-02-25 03:03] LABS: MDiff Complete? YES
[2021-02-25 03:05] LABS: Lymphocytes 7 % (21-51); Monocytes 5 % (0-10); Neutrophil 88 % (42-75)
[2021-02-25 09:38] LABS: Anion Gap 11 mmol/L (10-20); BUN (Urea Nitrogen) 38 mg/dL (9.8-20.1); Calc. Creatinine Clearance 51 mL/min (70-130); Calcium 7.9 mg/dL (7.8-10.44); Carbon Dioxide 22 mmol/L (23-31); Chloride 107 mmol/L (98-107); Glucose 207 mg/dL (83-110); Potassium 4.2 mmol/L (3.5-5.1); Sodium 136 mmol/L (136-145)
[2021-02-25] MEDS: Enoxaparin Sodium 40 MG/0.4 ML SYRINGE SC SCH (11:09)
[2021-02-25] MEDS: HumaLOG 300 UNITS/3 ML VIAL SC PRN ×2 (11:23→16:27)
[2021-02-25 15:19] LABS: Vancomycin, Trough 14.5 ug/mL
[2021-02-25] MEDS: Vancomycin HCl 1 GM in Sodium Chloride 0.9% 250 ML 250 ML IVPB SCH (16:43)
[2021-02-26] MEDS: Piperacillin/Tazobactam 3.375 GM in Sodium Chloride 0.9% 100 ML IVPB SCH ×3 (01:45→17:37)
[2021-02-26 05:26] LABS: #Eosinphils 0.3 10x3/uL (0.0-0.5); #Monocytes 0.9 10x3/uL (0.0-1.1); #Neutrophils 16.5 10x3/uL (1.5-8.4); %Basophils 0.2 % (0.0-2.0); %Eosinophils 1.6 % (0.0-6.0); %Lymphocytes 5.8 % (18.0-47.0); %Monocytes 4.9 % (0.0-10.0); %Neutrophils 86.2 % (40.0-75.0); Hemoglobin 7.7 g/dL (12.0-15.5); Mean Corpuscular HGB CONC 33.3 g/dL (32.0-36.0); Mean Corpuscular Hemoglobin 29.4 pg (27.0-33.0); Mean Corpuscular Volume 88.2 fl (81.6-98.3); Mean Platelet Volume 8.8 fl (7.4-10.4); Platelet Count 399 10x3/uL (150-450); RBC Distribution Width 17.8 % (11.5-14.5); Red Blood Cell (RBC) Count 2.62 10x6/uL (3.90-5.03); White Blood Cell (WBC) Count 19.1 10x3/uL (3.5-10.5)
[2021-02-26 05:36] LABS: ALT (SGPT) 14 U/L (8-55); AST (SGOT) 15 U/L (5-34); Albumin 2.3 g/dL (3.4-4.8); Alkaline Phosphatase 89 U/L (40-110); Anion Gap 11 mmol/L (10-20); BUN (Urea Nitrogen) 31 mg/dL (9.8-20.1); Bilirubin, Total 0.4 mg/dL (0.2-1.2); Calc. Creatinine Clearance 51 mL/min (70-130); Calcium 8.1 mg/dL (7.8-10.44); Carbon Dioxide 23 mmol/L (23-31); Chloride 109 mmol/L (98-107); Globulin 3.1 g/dL (2.4-3.5); Glucose 344 mg/dL (83-110); Potassium 3.6 mmol/L (3.5-5.1); Protein, Total 5.4 g/dL (5.8-8.1); Sodium 139 mmol/L (136-145)
[2021-02-26] MEDS: Enoxaparin Sodium 40 MG/0.4 ML SYRINGE SC SCH (08:07)
[2021-02-26] MEDS: HumaLOG 300 UNITS/3 ML VIAL SC PRN ×3 (08:07→16:18)
[2021-02-26] MEDS: Lantus 1000 UNITS/10 ML VIAL SC SCH (11:25)
[2021-02-26] MEDS: Vancomycin HCl 1 GM in Sodium Chloride 0.9% 250 ML 250 ML IVPB SCH (16:09)
[2021-02-26] MEDS ORDERED: Acetaminophen 650 MG/20.3 ML UDCUP PO PRN (16:45)
[2021-02-26] MEDS ORDERED: Lantus 1000 UNITS/10 ML VIAL SC SCH (21:00)
[2021-02-26] MEDS: Lactated Ringer's 1,000 ML IV SCH (21:55)
[2021-02-27] MEDS: Lactated Ringer's 1,000 ML IV SCH (01:57)
[2021-02-27] MEDS: Piperacillin/Tazobactam 3.375 GM in Sodium Chloride 0.9% 100 ML IVPB SCH ×2 (03:05→10:20)
[2021-02-27 04:28] LABS: #Basophils 0.1 10x3/uL (0.0-0.2); #Eosinphils 0.4 10x3/uL (0.0-0.5); #Neutrophils 15.6 10x3/uL (1.5-8.4); %Basophils 0.3 % (0.0-2.0); %Eosinophils 2.1 % (0.0-6.0); %Lymphocytes 7.3 % (18.0-47.0); %Monocytes 5.2 % (0.0-10.0); %Neutrophils 82.8 % (40.0-75.0); Hemoglobin 8.3 g/dL (12.0-15.5); Mean Corpuscular HGB CONC 32.5 g/dL (32.0-36.0); Mean Corpuscular Hemoglobin 28.6 pg (27.0-33.0); Mean Corpuscular Volume 87.9 fl (81.6-98.3); Mean Platelet Volume 9.2 fl (7.4-10.4); Platelet Count 445 10x3/uL (150-450); White Blood Cell (WBC) Count 18.8 10x3/uL (3.5-10.5)
[2021-02-27 04:44] LABS: ALT (SGPT) 16 U/L (8-55); AST (SGOT) 15 U/L (5-34); Albumin 2.6 g/dL (3.4-4.8); Alkaline Phosphatase 89 U/L (40-110); Anion Gap 12 mmol/L (10-20); BUN (Urea Nitrogen) 27 mg/dL (9.8-20.1); Bilirubin, Total 0.3 mg/dL (0.2-1.2); Calc. Creatinine Clearance 51 mL/min (70-130); Calcium 8.6 mg/dL (7.8-10.44); Carbon Dioxide 25 mmol/L (23-31); Chloride 112 mmol/L (98-107); Globulin 3.7 g/dL (2.4-3.5); Glucose 228 mg/dL (83-110); Potassium 3.6 mmol/L (3.5-5.1); Protein, Total 6.3 g/dL (5.8-8.1); Sodium 145 mmol/L (136-145)
[2021-02-27] MEDS ORDERED: Zinc Sulfate 220 MG CAP PER TUBE SCH (09:00)
[2021-02-27] MEDS ORDERED: Aspirin 325 MG TAB PER TUBE SCH (09:00)
[2021-02-27 10:07] LABS: Actual Bicarbonate (HCO3a) 27.4 mEq/L (22-28); Base Excess (BEa) -1.7 mEq/L (-2.0 to +3.0); CO2 Tension 73.6 mmHg (35.0-45.0); Calcium, Ionized (arterial) 1.23 mmol/L (1.12-1.30); Carboxyhemoglobin (COHb) 0.2 gm% (0.0-3.0); O2 Tension (PaO2), arterial 46.1 mmHg (> 60.0); Potassium - ABG Lab 4.1 mmol/L (3.70-5.30); Puncture Site LRA; pH, Arterial 7.19 (7.35-7.45)
[2021-02-27] MEDS: Enoxaparin Sodium 40 MG/0.4 ML SYRINGE SC SCH (10:19)
[2021-02-27] MEDS: Lantus 1000 UNITS/10 ML VIAL SC SCH (10:19)
[2021-02-27 12:14] VITALS: BP 136/68; TEMP 98.4
[2021-02-27] MEDS ORDERED: Atorvastatin Calcium 40 MG TAB PER TUBE SCH (21:00)
== END 2021-02-27 12:44 | disposition hospice, inpatient (51) | DRG 871 ==
LOC: CSHERS 13:15 → CSHTELE 13:16
PROVIDERS: ADMIT Family Medicine; ATTEND Internal Medicine
PROC: 8E0ZXY6 Isolation (ICD-10-PCS; principal; 2021-02-23)
DX: A41.9 Sepsis, unspecified organism (principal); J96.01 Acute respiratory failure with hypoxia; J69.0 Pneumonitis due to inhalation of food and vomit; G93.41 Metabolic encephalopathy; N39.0 Urinary tract infection, site not specified; N17.9 Acute kidney failure, unspecified; I50.32 Chronic diastolic (congestive) heart failure; I69.354 Hemiplegia and hemiparesis following cerebral infarction affecting left non-dominant side; E87.6 Hypokalemia; Z66 Do not resuscitate; Z51.5 Encounter for palliative care; F03.90 Unspecified dementia, unspecified severity, without behavioral disturbance, psychotic disturbance, mood disturbance, and anxiety; I11.0 Hypertensive heart disease with heart failure; D64.9 Anemia, unspecified; E11.65 Type 2 diabetes mellitus with hyperglycemia; Z20.822 Contact with and (suspected) exposure to COVID-19; Z92.21 Personal history of antineoplastic chemotherapy; Z90.710 Acquired absence of both cervix and uterus; Z88.5 Allergy status to narcotic agent; Z91.010 Allergy to peanuts; Z85.3 Personal history of malignant neoplasm of breast; Z93.1 Gastrostomy status; Z79.82 Long term (current) use of aspirin; Z79.4 Long term (current) use of insulin; Z79.899 Other long term (current) drug therapy; R65.20 Severe sepsis without septic shock; I69.391 Dysphagia following cerebral infarction; R13.10 Dysphagia, unspecified; I69.320 Aphasia following cerebral infarction; L89.152 Pressure ulcer of sacral region, stage 2; L89.629 Pressure ulcer of left heel, unspecified stage; K52.89 Other specified noninfective gastroenteritis and colitis
CPT/HCPCS: 36415; 36416; 36600; 71045; 76770; 80053; 80202; 81003; 81015; 82805; 83036; 83605; 83735; 83880; 84100; 84145; 84484; 85025; 87040; 87045; 87046; 87081; 87086; 87324; 87427; 87449; 87804; 87899; 93005; 94660; 94760; 94762; 96365; 96375; J0692; J1650; J1815; J2543; J3370; J3475; J3480; J3490; J7050; J7120; U0002

== ENCOUNTER 2021-02-27 13:23 | Inpatient (IN) | payer OTHER ==
[2021-02-27 13:28] VITALS: BMI 26.6
[2021-02-27] MEDS ORDERED: Bisacodyl 10 MG SUPP PR PRN (14:29)
[2021-02-27] MEDS ORDERED: Haloperidol Lactate 5 MG/ML VIAL SLOW IVP PRN (14:30)
[2021-02-27] MEDS ORDERED: Ondansetron PF 4 MG/2 ML Vial IVP PRN (14:30)
[2021-02-27] MEDS ORDERED: Scopolamine 1.5 mg/72 hour Patch TOP PRN (14:30)
[2021-02-27] MEDS ORDERED: Lorazepam 2 MG/ML VIAL SLOW IVP PRN (15:00)
[2021-02-27] MEDS: Lorazepam 2 MG/ML VIAL SLOW IVP SCH ×2 (15:02→21:10)
[2021-02-27] MEDS ORDERED: HYDROmorphone 0.5 MG/0.5 ML SYRINGE SLOW IVP PRN (15:15)
[2021-02-27] MEDS: HYDROmorphone 0.5 MG/0.5 ML SYRINGE SLOW IVP SCH ×4 (16:22→22:09)
[2021-02-28] MEDS: HYDROmorphone 0.5 MG/0.5 ML SYRINGE SLOW IVP SCH ×10 (00:32→18:03)
[2021-02-28] MEDS: Lorazepam 2 MG/ML VIAL SLOW IVP SCH ×5 (02:07→15:06)
[2021-02-28 16:35] VITALS: BP 174/70; TEMP 98.8
== END 2021-02-28 21:40 | disposition expired | DRG 951 ==
LOC: CSHHOSPOP 13:23 → CSHTELE 13:23 → EDSTATUS 13:38
PROVIDERS: ADMIT Family Medicine; ATTEND Family Medicine
DX: Z51.5 Encounter for palliative care (principal); Z66 Do not resuscitate; Z86.73 Personal history of transient ischemic attack (TIA), and cerebral infarction without residual deficits; E11.9 Type 2 diabetes mellitus without complications; F03.90 Unspecified dementia, unspecified severity, without behavioral disturbance, psychotic disturbance, mood disturbance, and anxiety
CPT/HCPCS: J1170; J2060